=== PATIENT | female | born 1965 | race Caucasian/White ===

== ENCOUNTER → 2021-06-28 | Day surgery (SDC) | payer OTHER ==
[~2021-06-28] VITALS: Ht 167.6 cm; Wt 140.6 kg
[~2021-06-28] MED LIST: LEXAPRO 10 MG T10 M2 PO; NORCO5 PO
--- NOTE | 2021-06-28 10:03 | EKG ---
[address] [place] [address] ELECTROCARDIOGRAM REPORT Name: ETHEL FRANCIS Room #: REG [facility].R.#: [id number] Admission: 06/28/21 Attend Phys: Lolita Calle DO Discharge: Date of : 61 Report #: [id number] [facility] Test Date: 2021-06-28 Test Time: 09:21:05 Pat Name: ETHEL FRANCIS Department: Room: Gender: F Rag Sorter: SHAN : 1965 Requested By: Lolita Calle Order Number: [id number] MD: Gabo Villarreal Measurements Intervals [place] Rate: 75 P: 0 OK: 203 QRS: 43 QRSD: 190 T: 27 QT: 409 QTc: 457 Interpretive Statements Sinus rhythm Borderline prolonged OK interval Left bundle branch block No previous ECG available for comparison Electronically Signed On 06-28-2021 10:02:46 [employer]PER[employer] by Gabo Villarreal [email or web address] <ELECTRONICALLY SIGNED> By: Gabo Villarreal MD, [facility] 06/28/21 1002 0921 0 Gabo Villarreal MD, FACC /EPI
[2021-06-28 10:53] VITALS: BP 148/80
[2021-06-28 14:17] VITALS: BP 148/80
--- NOTE | 2021-06-30 15:07 | PATH ---
[facility] [place] [address] PATHOLOGY RPT PROCEDURE Name: SHELLIE WILL Room #: [place] [facility] [place].#: [id number] Admission: 06/28/21 Date of : 61 Discharge: Report #: [id number] Path Case #: [id number] [facility] Accession Number: [id number] . 01 Material submitted: . PART A: breast - RIGHT BREAST LUMPECTOMY. Modifiers: right PART B: axillary tail of breast - RT AXILLARY CONTENTS. Modifiers: right PART C: breast - RT ADDITIONAL MARGIN INFERIOR POSTERIOR. Modifiers: right, inferior, posterior PART D: breast - RT ADDITIONAL MARGIN POSTERIOR. Modifiers: right, posterior . 01 Clinical history: . RIGHT BREAST INVASIVE DUCTAL CARCINOMA LYMPECTOMY W/ AXILLARY NODE DISECTION . 02 Diagnosis: A. Right breast, lumpectomy,status post neoadjuvant chemotherapy: - INVASIVE DUCTAL CARCINOMA, GRADE 3, 1.5 CM. . B. Right axillary dissection: - One of ten lymph nodes positive (1/10) for metastatic malignancy. . C. Right additional margin, inferior-posterior, stitch at new margin: - Negative for malignancy. . D. Right additional margin, posterior, stitch, new margin: - Negative for malignancy. . Protocol Posting Date: April 2021 . CASE SUMMARY: (INVASIVE CARCINOMA OF THE BREAST: Resection) . SPECIMEN . Procedure ___ Excision (less than total mastectomy) . Specimen Laterality ___ Right . TUMOR . +Tumor Site ___ Not specified . Histologic Type ___ Invasive carcinoma of no special type (ductal) [facility] [address] [place] [address] PATHOLOGY RPT PROCEDURE Name: SHELLIE WILL [facility]#: [id number] Admission: 06/28/21 Date of : 61 Discharge: Report #: [id number] Path Case #: [id number] . Histologic Grade (Rosa Histologic Score) Glandular (Acinar) / Tubular Differentiation ___ Score 3 (less than 10% of tumor area forming glandular / tubular structures) Nuclear Pleomorphism ___ Score 3 (Vesicular nuclei, often with prominent nucleoli, exhibiting marked variation in size and shape, occasionally with very large and bizarre forms) Mitotic Rate ___ Score 2 Overall Grade ___ Grade 3 (scores of 8 or 9) . +Tumor Size ___ Greatest dimension of largest invasive focus greater than 1 mm: 15 mm +Additional Dimension: 15 x 5 mm . +Tumor Focality ___ Single focus of invasive carcinoma . Ductal Carcinoma In Situ (DCIS) ___ Not identified . +Lymphovascular Invasion ___ Not identified . . +Dermal Lymphovascular Invasion ___ No skin present . +Microcalcifications ___ Present in invasive carcinoma . Treatment Effect in the Breast ___ Probable or definite response to presurgical therapy in the invasive carcinoma . Treatment Effect in the Lymph Nodes ___ Probable or definite response to presurgical therapy in metastatic carcinoma . MARGINS . Margin Status for Invasive Carcinoma ___ All margins negative for invasive carcinoma Distance from Invasive Carcinoma to Closest Margin ___ Exact distance: 5 mm [facility] [address] [place] [address] PATHOLOGY RPT PROCEDURE Name: TITOSHELLIE [facility]#: [id number] Admission: 06/28/21 Date of : 61 Discharge: Report #: [id number] Path Case #: [id number] +Closest Margin(s) to Invasive Carcinoma ___ Anterior . Margin Status for DCIS ___ Not applicable (no DCIS in specimen) . REGIONAL LYMPH NODES . Regional Lymph Node Status ___ Regional lymph nodes present ___ Tumor present in regional lymph node(s) Number of Lymph Nodes with Macrometastases (greater than 2 mm) ___ Exact number: 1 Number of Lymph Nodes with Micrometastases (greater than 0.2 mm to 2 mm and / or greater than 200 cells) ___ Exact number: 0 Number of Lymph Nodes with Isolated Tumor Cells (0.2 mm or less OR 200 cells or less) ___ Exact number: 0 Size of Largest Toy Metastatic Deposit ___ Exact size: 10 mm Extranodal Extension ___ Not identified Total Number of Lymph Nodes Examined (sentinel and non-sentinel) ___ Exact number: 10 . Number of [place] Nodes Examined ___ Not applicable . PATHOLOGIC STAGE CLASSIFICATION (pTNM, AJCC 8th Edition) (Note N) . TNM Descriptors ___ y (post-treatment) . pT Category ___ pT1c: Tumor greater than 10 mm but less than or equal to 20 mm in greatest dimension . pN Category ___ pN1a: Metastases in 1-3 axillary lymph nodes, at least one metastasis larger than 2.0 mm## . ADDITIONAL FINDINGS . +Additional Findings: Fibrocystic changes . SPECIAL STUDIES . [facility] [place] [address] PATHOLOGY RPT PROCEDURE Name: SHELLIE WILL Room #: REG [facility]..#: [id number] Admission: 06/28/21 Date of : 61 Discharge: Report #: [id number] Path Case #: [id number] +Breast Biomarker Testing Performed on Previous Biopsy ___ Estrogen Receptor (ER) Estrogen Receptor (ER) Status ___ Positive (greater than 10% of cells demonstrate nuclear positivity) +Percentage of Cells with Nuclear Positivity ___ Specify %:94 % . . . ___ Progesterone Receptor (PgR) Progesterone Receptor (PgR) Status ___ Positive +Percentage of Cells with Nuclear Positivity# ___ Specify %:82 % . . . ___ HER2 (by immunohistochemistry) HER2 (by immunohistochemistry) . ___ Negative (Score 1+) . . ___ Ki-67 Ki-67 Percentage of Positive Nuclei: 43 % +Testing Performed on Case Number: Not specified . (ANK:justin; 06/30/2021) QTP 06/30/2021 1413 [facility] . 02 Electronically signed: . Shanda Nolasco MD, Pathologist NPI- [id number] . 01 Gross description: . A. Fixative: Formalin Labeled: Right breast lumpectomy Specimen received: Oriented lumpectomy (a localization wire is present but fell off of the specimen upon removal from the container) Oriented: Short superior, long lateral, double anterior Weight: 22 g Dimensions: 5.7 cm medial to lateral, 4.1 cm superior to inferior, and 2.3 cm anterior to posterior . The specimen is inked as follows: superior-red inferior-blue [facility] [address] [place] [address] PATHOLOGY RPT PROCEDURE Name: SHELLIE WILL [id number] Admission: 06/28/21 Date of : 61 Discharge: Report #: [id number] Path Case #: [id number] anterior-green posterior-black lateral-orange medial-yellow . Sectioned from: Lateral to medial Number of slices: 14 Lesion: 1.5 x 1.5 x 0.5 cm Lesion location: Slices 9 through 12 . Lesion to margins: 1.2 cm to superior 0.8 cm to inferior 0.5 cm to anterior Grossly abuts posterior 3.2 cm to lateral 1.0 cm to medial . Biopsy clip: Identified in slice 10 Uninvolved breast parenchyma: Bright yellow, lobulated . 07 received within the specimen container is an additional segment of yellow-[place] lobulated tissue measuring 3.6 x 1.6 x 1.0 cm, and weighing 2 g. The specimen is inked black. Sectioning reveals yellow-[place], lobulated cut surfaces with no grossly distinct nodules or lesions. . The specimen is submitted as follows: . A1 slice 1 (most lateral margin), serially sectioned A2 slice 2 A3 slice 3, bisected into superior and inferior aspects A4-A5 slice 4, bisected into superior and inferior aspects A6-A7 slice 5, bisected into superior and inferior aspects A8-A9 slice 6, bisected into superior and inferior aspects A10-A11 slice 7, bisected into superior and inferior aspects A12-A13 slice 8, bisected into superior and inferior aspects A14-A15 slice 9, bisected into superior and inferior aspects A16-A17 slice 10, bisected into superior and inferior aspects A18-A19 slice 11, bisected into superior and inferior aspects A20-A21 slice 12, bisected into superior and inferior aspects A22-A23 slice 13, bisected into superior and inferior aspects A24 slice 14 (most medial margin), serially sectioned A25-A27 separately submitted segment of tissue, entirely submitted . The time of collection and time in formalin are not provided. The specimen is removed from formalin at 1650 on 06/29/2021. The specimen is in formalin for greater than 6 hours and less than [address]. . [address] [address] PATHOLOGY RPT PROCEDURE Name: SHELLIE WILL Room #: [place] [facility] [place].R.#: [id number] Admission: 06/28/21 Date of : 61 Discharge: Report #: [id number] Path Case #: [id number] B. The specimen is received in formalin, labeled "Shellie Will, right axillary contents". Received are multiple segments of yellow-[place] lobulated tissue measuring 6.3 x 5.5 x 2.4 cm in aggregate dimensions. Dissection and palpation of the specimen revealed nine readily identifiable lymph nodes ranging in size from 1.0-3.1 cm in maximum dimensions. The lymph nodes are submitted as follows: . B1-B8 one bisected lymph node in each cassette B9-B10 one bisected lymph node. . C. Fixative: Formalin Labeled: Right additional inferior margin Specimen received: Partial oriented lumpectomy Oriented: A single suture designating the new margin Weight: 2 g Dimensions: 3.2 x 3.4 x 1.1 cm New margin inked: Black . Serially sectioned and entirely submitted in cassettes C1 through C3. . The time of collection and time in formalin are not provided. The specimen is removed from formalin at 1650 on 06/29/2021. The specimen is in formalin for greater than 6 hours and less than 72 hours. . D. Fixative: Formalin Labeled: Right additional posterior margin Specimen received: Partial oriented lumpectomy Oriented: A single suture designating the new margin Weight: 2 g Dimensions: 2.7 x 2.3 x 0.8 cm New margin inked: Black . Serially sectioned and entirely submitted in cassettes D1 through D3. . The time of collection and time in formalin are not provided. The specimen is removed from formalin at 1650 on 06/29/2021. The specimen is in formalin for greater than 6 hours and less than 72 hours. (CAA; 06/29/2021) QAC/QAC 06/29/2021 1020 Local . 02 Pathologist provided ICD-10: C50.911, C77.3 . 02 CPT . 029976, 934785, 156477, 641345 Specimen Comment: A courtesy copy of this report has been sent to [phone], [phone] Specimen Comment: [phone] [facility] [address] [place] [address] PATHOLOGY RPT PROCEDURE Name: SOLEDAD WILLHI Room #: REG [facility]..#: [id number] Admission: 06/28/21 Date of : 61 Discharge: Report #: [id number] Path Case #: [id number] Specimen Comment: Report sent to / DR TELLES Performed at: [address], [place] [id number] MD Christian Eisenberg MD Phone: [phone] Performed at: 02 [facility] [address] [place], [place] [id number] MD Shanda Nolasco MD Phone: [phone]
--- NOTE | 2021-07-06 16:16 | O ---
[facility] [place] [address] [place] [address] OPERATIVE REPORT Name: ETHEL FRANCIS Room #: REG [facility] [place] M.R.#: [id number] Admission: 06/28/21 Attend Phys: Lolita Calle DO Discharge: Date of : 61 Report #: [id number] THIS REPORT FOR: cc: VONNIE TELLES MD, OSSAMA MD Fisher,Lolita Morse DO ~ DATE OF SERVICE: 06/28/2021 PREOPERATIVE DIAGNOSES: Right breast invasive ductal carcinoma with metastasis to the right axillary lymph node. POSTOPERATIVE DIAGNOSES: Right breast invasive ductal carcinoma with metastasis to the right axillary lymph node. PROCEDURE: 1. Right breast lumpectomy with wire localization. 2. Injection of isosulfan blue for lymph node localization. 3. Right axillary dissection. SURGEON: Lolita Calle M.D. ANESTHESIA: General endotracheal and local anesthetic. SPECIMENS: 1. Right breast lumpectomy (marked short stitch superior, long stitch lateral, double stitch anterior). 2. Additional inferior posterior margin (stitch graves new margin). 3. Additional posterior margin (stitch graves new margin). 4. Right axillary contents. INTRAOPERATIVE FINDINGS: Radiographic confirmation of lumpectomy site with biopsy clip in place. ESTIMATED BLOOD LOSS: 30 mL. COMPLICATIONS: None. INDICATIONS FOR PROCEDURE: The patient is a 56-year-old female who was seen and evaluated in my office after undergoing neoadjuvant chemotherapy for metastatic right breast cancer with positive lymph node involvement. The patient was explained the procedure including risks, benefits and alternatives. All questions were answered to the patient's satisfaction. Informed consent was obtained. DESCRIPTION OF PROCEDURE: After the patient was brought back to the operating room and placed in supine position, general anesthesia was induced. SCDs were [address] [address] OPERATIVE REPORT Name: ETHEL FRANCIS Room #: REG [facility] M.Hilario.#: [id number] Admission: 06/28/21 Attend Phys: Lolita Calle DO Discharge: Date of : 61 Report #: [id number] placed on bilateral lower extremities and prophylactic antibiotics were administered. The patient had previously gone to radiology and had a wire localization of her mass. Imaging was reviewed and the cup was then removed. At this time, once general anesthesia was induced and a timeout was performed, I did place 4 mL of isosulfan blue around the nipple to ensure for localization of the lymph nodes due to the patient's positive lymph node involvement. At this time, the breast was then massaged for 5 minutes. The right breast was then prepped and draped in the usual sterile fashion. The right breast and axilla were prepped and draped in the usual sterile fashion. After a second timeout was performed, the breast was visualized. The wire was noted to be near the right axilla and after inspection of the breast, I did feel that the lumpectomy as well as axillary dissection could be performed from a single incision site. Therefore, in the right upper lateral breast fold, I marked this natural skin crease and then made a 6 cm oblique incision following this natural fold. Dissection was carried down through subcutaneous tissues using Bovie cautery. The attention was first turned towards the lumpectomy. Dissection was carried out medially towards the breast in a radial fashion towards the nipple. I was able to identify the needle and wire within the breast tissue approximately 1 cm below the level of the skin. Once this was identified, the needle was then removed and the wire was then grasped within the tissues and remained in place. Dissection was carried out circumferentially using Bovie cautery. I was able to palpate approximately a 1 cm firm nodule towards the tip of the wire. I attempted to get approximately a 1 cm margin around this mass. I did encounter a large blood vessel, which was cauterized. This was consistent with a vessel seen on mammography on the patient's pre-biopsy as well as post-wire localization imaging. At this time, once the lumpectomy was circumferentially dissected free from the surrounding structures, I did see a small portion of the wire tip and therefore, I took additional tissue in this region. Once the specimen was removed, it was labeled with a short stitch superior, long stitch lateral, and double stitch anterior. The specimen was then taken to radiology where imaging did demonstrate the biopsy clip was within the specimen. Prior to sending to radiology, the lumpectomy was inspected. I felt that the closest margin was near where the blood vessel was cauterized. There was also cautery burn to the specimen itself in this location. I felt additional margin was warranted in this area. Therefore, I grasped the adjacent cauterized vessel and the breast and removed additional margin at this location. This was noted to be additional posterior margin and was marked with stitch on the new margin. Upon inspection and finger palpation of the lumpectomy cavity, I felt that there was additional firm tissue, which was consistent with the inferior posterior margin. This was grasped and taken as additional margin as well with stitch marked the new margin. At this time, the lumpectomy cavity was copiously irrigated with saline and was noted to be hemostatic. Ray-Tecs were then placed within the lumpectomy site, which were removed prior to completion of the procedure. I then turned my attention towards the axillary dissection. The incision was then undermined in a superior lateral direction towards the axilla. I was able to [facility] [address] [place] [address] OPERATIVE REPORT Name: ETHEL FRANCIS Room #: REG [facility] [place] M.R.#: [id number] Admission: 06/28/21 Attend Phys: Lolita Calle DO Discharge: Date of : 61 Report #: [id number] see some small blue lymphatic channels from the isosulfan blue. I followed these to the axillary fat pad, which was identified. I was able to palpate 2 large lymph nodes, which were within the axillary fat pad. I did remove the level 1 and level 2 nodes from the right axillary vein to the latissimus dorsi and the pectoralis major lateral border. The long thoracic nerve and the thoracodorsal nerve were identified and noted to be intact and were well preserved. Upon further finger palpation of the axilla, several firm matted lymph nodes were also identified within the lateral breast tissue between axillary dissection and the breast tissue itself. Dissection was carried out and I was able to identify what appeared to be normal sized lymph nodes; however, they were firm in texture and therefore these were additionally dissected and sent as axillary contents as well. The axilla was then inspected, copiously irrigated. Hemostasis was noted to be excellent. At this time, the Ray-Tecs were removed from the lumpectomy cavity site. Again, a hemostasis was noted to be achieved. At this time, the skin was closed in a layered fashion with 3-0 Vicryl in the deep dermal layer and 4-0 Monocryl in a running subcuticular manner. Dermabond was applied for sterile dressing. All sponge and instrument count was reported as correct at the end of the case. The patient tolerated the procedure well without any complications. She was awakened from anesthesia in the operating room and taken to the PACU in stable condition for further recovery. <ELECTRONICALLY SIGNED> By: Lolita Calle DO 07/06/21 1616 1021 1128 Lolita Calle DO /nt
== END | disposition home or self-care (01) ==
LOC: OR 06-21 09:52
PROVIDERS: ATTEND Surgery
DX: C50.911 Malignant neoplasm of unspecified site of right female breast (principal); C77.3 Secondary and unspecified malignant neoplasm of axilla and upper limb lymph nodes; F32.9 Major depressive disorder, single episode, unspecified; Z20.822 Contact with and (suspected) exposure to COVID-19; Z98.890 Other specified postprocedural states; Z79.899 Other long term (current) drug therapy; Z87.891 Personal history of nicotine dependence; Z85.3 Personal history of malignant neoplasm of breast; Z88.8 Allergy status to other drugs, medicaments and biological substances
CPT/HCPCS: 50010; 50101; 50386; 50403; 51412; 54118; 56524; 56526; 56528; 58585; 62110; 62900; 70005